=== PATIENT | female | born 1990 | race Native Hawaiian/Other Pacific Islander ===

== ENCOUNTER 2016-11-11 17:30 | Emergency (ER) | payer OTHER ==
[~2016-11-11] VITALS: Ht 180.3 cm; Wt 141.5 kg
[~2016-11-11 17:30] MED LIST: CETI10TA PO; FLUT0.05 NAS; PROVENTIL IN; TOPAMAX25 MG PO; TRAM50TA PO
[2016-11-11 19:18] VITALS: BP 135/94; TEMP 98.1
== END 2016-11-11 19:20 | disposition home or self-care (01) ==
LOC: ED 17:30
DX: R21 Rash and other nonspecific skin eruption (principal)
CPT/HCPCS: 99281

== ENCOUNTER 2017-09-20 11:19 | Outpatient (CLI) | payer OTHER | END 2017-09-20 21:32 | disposition home or self-care (01) | LOC: MAMMO 11:19 | DX: Z12.31 Encounter for screening mammogram for malignant neoplasm of breast (principal); Z80.3 Family history of malignant neoplasm of breast ==

== ENCOUNTER 2018-05-07 10:29 | Emergency (ER) | payer OTHER ==
[~2018-05-07] VITALS: Ht 180.3 cm; Wt 136.1 kg
[2018-05-07 11:04] VITALS: BP 143/89; TEMP 97.9
== END 2018-05-07 11:09 | disposition home or self-care (01) ==
LOC: ED 10:29
DX: J06.9 Acute upper respiratory infection, unspecified (principal); J30.89 Other allergic rhinitis
CPT/HCPCS: 99281

== ENCOUNTER 2018-08-15 04:56 | Emergency (ER) | payer OTHER ==
[~2018-08-15] VITALS: Ht 180.3 cm; Wt 149.7 kg
[2018-08-15 06:17] VITALS: BP 146/53; TEMP 98.4
== END 2018-08-15 06:20 | disposition home or self-care (01) ==
LOC: ED 04:56
DX: J45.909 Unspecified asthma, uncomplicated (principal)
CPT/HCPCS: 99282

== ENCOUNTER 2018-12-21 12:43 | Emergency (ER) | payer OTHER ==
[~2018-12-21] VITALS: Ht 180.3 cm; Wt 149.7 kg
[2018-12-21 13:24] LABS: PLATELET COUNT 269 K/uL (152-353)
[2018-12-21 13:27] LABS: POTASSIUM 3.9 mmol/L (3.6-5.2)
[2018-12-21 18:05] VITALS: BP 111/63; TEMP 98.1
== END 2018-12-21 18:05 | disposition home or self-care (01) ==
LOC: ED 12:43
PROVIDERS: Emergency Medicine
DX: R10.84 Generalized abdominal pain (principal)
CPT/HCPCS: 36415; 80053; 81000; 81025; 82150; 83690; 85027; 86318; 96360; 96374; 96375; 99284; J2405; Q9963

== ENCOUNTER 2019-02-18 09:50 | Emergency (ER) | payer OTHER ==
[~2019-02-18] VITALS: Ht 180.3 cm; Wt 149.7 kg
[2019-02-18 12:40] VITALS: BP 149/78; TEMP 97.9
== END 2019-02-18 12:47 | disposition home or self-care (01) ==
LOC: ED 09:50
PROC: 2W3CX1Z Immobilization of Right Lower Arm using Splint (ICD-10-PCS; principal; 2019-02-18)
DX: S60.211A Contusion of right wrist, initial encounter (principal); M25.531 Pain in right wrist; W01.190A Fall on same level from slipping, tripping and stumbling with subsequent striking against furniture, initial encounter; Y92.89 Other specified places as the place of occurrence of the external cause; Z79.899 Other long term (current) drug therapy
CPT/HCPCS: 80307; 81000; 81025; 99283

== ENCOUNTER 2019-07-02 22:56 | Emergency (ER) | payer OTHER ==
[~2019-07-02] VITALS: Ht 180.3 cm; Wt 136.1 kg
[2019-07-02 23:51] LABS: PLATELET COUNT 281 K/uL (152-353)
[2019-07-03 00:08] LABS: POTASSIUM 3.8 mmol/L (3.6-5.2)
[2019-07-03 00:55] VITALS: BP 122/81; TEMP 98.1
== END 2019-07-03 00:55 | disposition home or self-care (01) ==
LOC: ED 22:56
PROVIDERS: Hospitalist
DX: K29.70 Gastritis, unspecified, without bleeding (principal); N39.0 Urinary tract infection, site not specified
CPT/HCPCS: 36415; 80053; 81000; 81025; 82150; 83690; 85027; 96374; 99284; J2405

== ENCOUNTER 2020-06-02 17:29 | Emergency (ER) | payer OTHER ==
[~2020-06-02] VITALS: Ht 180.3 cm; Wt 136.1 kg
[2020-06-02 19:33] VITALS: BP 141/80; TEMP 98.8
== END 2020-06-02 19:33 | disposition home or self-care (01) ==
LOC: ED 17:29
DX: H65.193 Other acute nonsuppurative otitis media, bilateral (principal)
CPT/HCPCS: 99282

== ENCOUNTER 2021-01-01 19:55 | Emergency (ER) | payer OTHER | END 2021-01-01 21:02 | disposition home or self-care (01) | LOC: ED 19:55 | DX: S83.8X2A Sprain of other specified parts of left knee, initial encounter (principal); W18.39XA Other fall on same level, initial encounter; Y92.89 Other specified places as the place of occurrence of the external cause | CPT/HCPCS: 99283 ==

== ENCOUNTER 2021-06-26 19:04 | Emergency (ER) | payer OTHER ==
[~2021-06-26] VITALS: Ht 180.3 cm; Wt 147.4 kg
[2021-06-26 20:45] VITALS: BP 134/72
== END 2021-06-26 20:45 | disposition home or self-care (01) ==
LOC: ED 19:04
DX: S93.691A Other sprain of right foot, initial encounter (principal); Z87.820 Personal history of traumatic brain injury; E66.8 Other obesity; W10.8XXA Fall (on) (from) other stairs and steps, initial encounter; Y92.098 Other place in other non-institutional residence as the place of occurrence of the external cause
CPT/HCPCS: 99283

== ENCOUNTER 2022-05-15 17:08 | Emergency (ER) | payer OTHER ==
[~2022-05-15] VITALS: Ht 180.3 cm; Wt 147.4 kg
[2022-05-15 19:30] VITALS: BP 158/79; TEMP 97.6
== END 2022-05-15 19:30 | disposition home or self-care (01) ==
LOC: ED 17:08
DX: M25.462 Effusion, left knee (principal); W01.0XXA Fall on same level from slipping, tripping and stumbling without subsequent striking against object, initial encounter; Y92.89 Other specified places as the place of occurrence of the external cause
CPT/HCPCS: 99283